=== PATIENT | female | born 1955 | race Caucasian/White ===

== ENCOUNTER → 2019-05-09 | Outpatient (CLI) | payer OTHER ==
[~2019-05-09] MED LIST: AMIT25 PO; AMLO5 PO; ASPI325 PO; ATEN25 PO; BIOTIN10000 MC1 PO; BP MED; BUPR75 PO; CALCAVITD PO; CELE200 PO; CEPH500 PO; CYCL10 PO; Cinnamon500 MG PO; Cipro500 MG PO; DIPATR PO; DULO60 PO; GABA600 PO; GLIP5 PO; HYDACE10B PO; HYDHCL25 PO; HYDROXYZINE HCL PO; INSDET100 SC; KETO10 PO; LEVSOD100 PO; LEVSOD125 PO; LEVSOD137 PO; LEVSOD150 PO; LISI5 PO; LOSA50 PO; LOSARTAN POTAS100 MG PO; Lexapro20 MG PO; METF500 PO; METF500C PO; Norco 10-325 T1 EACH PO; Norco 5-325 Ta1 EACH PO; OMEP20ER PO; ONDA4ODT MM; OXYACE5T PO; Omeprazole20 M1 PO; PANT40 PO; PRAV20 PO; PROM25 PO; PROM25S PR; Pyridium200 MG PO; Roxicodone5 MG PO; SITA25T2 PO; SITA50T2 PO; SUCR1 PO; TRAM50 PO; Zanaflex2 M1 PO; Zofran Odt4 MG SL
== END | disposition home or self-care (01) ==
LOC: LAB SHORT 14:23 → LAB EV 14:23
DX: N39.0 Urinary tract infection, site not specified (principal)
CPT/HCPCS: 87086

== ENCOUNTER 2019-08-24 08:06 | Day surgery (SDC) | payer OTHER ==
[~2019-08-24] VITALS: Ht 170.2 cm; Wt 85.7 kg
--- NOTE | 2019-08-24 08:43 | NUR ---
Ambulatory in Day Surgery. History, Chart, Medications and Allergies reviewed before start of procedure. Lungs clear T/O to Auscultation. Patient confirms NPO status and agrees with scheduled surgery. Pre-Op teaching done. Pt verbalizes understanding. Patient States Post-Procedure ride home has been arranged.
--- NOTE | 2019-08-24 08:52 | NUR ---
08/24/19 0852 Eli Bond History, Chart, Medications and Allergies reviewed before start of procedure. PATIENT CONFIRMS NPO STATUS AND AGREES WITH SCHEDULED PROCEDURE. MONITOR INTACT WITH CONTINUOUS PULSE OXIMETRY AND INTERMITTENT BP. O2 VIA N/C INTACT THROUGHOUT SEDATION/PROCEDURE. 3-LEAD EKG REVIEWED WITH PHYSICIAN PRIOR TO START OF PROCEDURE. Bite Block Placed. HURRICAINE SPRAY TO OROPHARYX. PATIENT DETERMINED TO BE ASA APPROPRIATE FOR PROPOFOL SEDATION PRIOR TO START OF PROCEDURE BY DR. TORRES
--- NOTE | 2019-08-24 09:43 | NUR ---
Discharge instructions reviewed with patient. Patient verbalizes understanding. Copy given to patient to take home. LAB HERE TO DRAW BLOOD PER ORDER.
[2019-08-24 09:55] LABS: BASOPHILS ABSOLUTE AUTO 0.04 K/mm3 (0.00-0.23); BASOPHILS PERCENT AUTO 1 % (0-2); EOSINOPHILS ABSOLUTE AUTO 0.16 K/mm3 (0.00-0.68); EOSINOPHILS PERCENT AUTO 3 % (0-6); Hematocrit 36.5 % (33.0-51.0); Hemoglobin 11.9 g/dL (11.5-16.0); IMMATURE GRAN ABSOLUTE AUTO 0.02 K/mm3 (0.00-0.10); IMMATURE GRAN PERCENT AUTO 0 % (0-1); LYMPHOCYTES ABSOLUTE AUTO 1.43 K/mm3 (0.84-5.20); LYMPHOCYTES PERCENT AUTO 25 % (21-46); MONOCYTES ABSOLUTE AUTO 0.65 K/mm3 (0.16-1.47); MONOCYTES PERCENT AUTO 11 % (4-13); Mean Corpuscular HGB 30.3 pg (26.0-34.0); Mean Corpuscular HGB Conc 32.6 g/dL (31.5-36.5); Mean Corpuscular Volume 93 fL (80-100); Mean Platelet Volume 9.3 fL (9.1-12.4); NEUTROPHILS ABSOLUTE AUTO 3.42 K/mm3 (1.96-9.15); NEUTROPHILS PERCENT AUTO 60 % (41-73); Platelet Count 194 K/mm3 (150-400); RDW Coefficient Variation 12.8 % (11.7-14.2); Red Blood Cell Count 3.93 M/mm3 (3.80-5.20); White Blood Cell Count 5.72 K/mm3 (4.00-11.30)
--- NOTE | 2019-08-24 10:17 | NUR ---
4025- Discharged via wheelchair to private car for ride home. FAXED ORDER FOR CT TO RADIOLOGY PER MOST, ALL OUTPT RADIOLOGY PROCEDURES NEED TO BE REVIEWED FIRST BEFORE SCHEDULED. EXPLAINED TO PT PRIOR TO DC HOME THAT CT IS NOT ABLE TO BE DONE TODAY BECAUSE SHE IS POST EGD PROCEDURE AND "TOO MUCH" AIR IN ABDOMEN MAY BE POSSIBLE. DR TORRES AWARE THAT CT WILL NEED TO BE OUTPT.
[2019-08-24 10:21] LABS: Alanine Aminotransfer (ALT/SGP 31 U/L (12-78); Albumin, Blood 3.3 g/dL (3.4-5.0); Albumin/Globulin Ratio 1.1 (0.8-1.8); Alk Phos 69 U/L (50-136); Anion Gap 6 mmol/L (6-16); Aspartate Aminotrans (AST/SGOT 22 U/L (12-37); Bilirubin, Total 0.3 mg/dL (0.1-1.0); Blood Urea Nitrogen 10 mg/dL (8-24); Bun/Creatinine Ratio 11.5 (12.0-20.0); CO2, Blood 28 mmol/L (21-32); Calcium, Blood 8.9 mg/dL (8.5-10.1); Chloride, Blood 108 mmol/L (98-108); Creatinine, Blood 0.87 mg/dL (0.40-1.00); Globulin, Blood 3.1 g/dL (2.2-4.0); Glomerular Filtration Rate >60 (60-); Glucose, Blood 151 mg/dL (70-99); Potassium, Blood 3.9 mmol/L (3.5-5.5); Sodium, Blood 142 mmol/L (136-145); Total Protein, Blood 6.4 g/dL (6.4-8.2)
== END 2019-08-24 09:52 | disposition home or self-care (01) ==
LOC: ORSCMMR 08:06 → ORD 09:15 → ORSCMMR 09:52
PROVIDERS: Internal Medicine Gastroenterology
PROC: 0DB98ZX Excision of Duodenum, Via Natural or Artificial Opening Endoscopic, Diagnostic (ICD-10-PCS; principal; 2019-08-24 09:15)
PROC: 0DB68ZX Excision of Stomach, Via Natural or Artificial Opening Endoscopic, Diagnostic (ICD-10-PCS; principal; 2019-08-24 09:15)
DX: R10.13 Epigastric pain (principal); K29.70 Gastritis, unspecified, without bleeding; E11.9 Type 2 diabetes mellitus without complications; I10 Essential (primary) hypertension; M79.7 Fibromyalgia; Z79.4 Long term (current) use of insulin; Z79.84 Long term (current) use of oral hypoglycemic drugs; Z79.899 Other long term (current) drug therapy
CPT/HCPCS: 36415; 80053; 82947; 85025; 88305; 88342; J2704; J7120

== ENCOUNTER 2020-05-04 12:51 | Emergency (ER) | payer OTHER ==
[~2020-05-04] VITALS: Ht 170.2 cm; Wt 83.9 kg
[2020-05-04] MEDS ORDERED: SITA50T2 PO (13:03)
[2020-05-04] MEDS ORDERED: MAGNESIUM OXID500 MG PO (13:05)
[2020-05-04] MEDS ORDERED: LORA10ER PO (13:05)
[2020-05-04] MEDS ORDERED: OMEP20ER PO (13:06)
[2020-05-04] MEDS ORDERED: PARO20 PO (13:06)
[2020-05-04] MEDS ORDERED: ATOR20 PO (13:08)
[2020-05-04] MEDS ORDERED: TRAZ100 PO (13:09)
[2020-05-04] MEDS ORDERED: ROXICODONE15 MG PO (13:11)
[2020-05-04] MEDS ORDERED: BASAGLAR K100 UNIT/7 SC (13:12)
[2020-05-04 13:28] LABS: BASOPHILS ABSOLUTE AUTO 0.05 K/mm3 (0.00-0.23); BASOPHILS PERCENT AUTO 1 % (0-2); EOSINOPHILS ABSOLUTE AUTO 0.26 K/mm3 (0.00-0.68); EOSINOPHILS PERCENT AUTO 4 % (0-6); Hematocrit 41.8 % (33.0-51.0); Hemoglobin 13.7 g/dL (11.5-16.0); IMMATURE GRAN ABSOLUTE AUTO 0.01 K/mm3 (0.00-0.10); IMMATURE GRAN PERCENT AUTO 0 % (0-1); LYMPHOCYTES PERCENT AUTO 30 % (21-46); MONOCYTES ABSOLUTE AUTO 0.57 K/mm3 (0.16-1.47); MONOCYTES PERCENT AUTO 9 % (4-13); Mean Corpuscular HGB 30.4 pg (26.0-34.0); Mean Corpuscular HGB Conc 32.8 g/dL (31.5-36.5); Mean Corpuscular Volume 93 fL (80-100); Mean Platelet Volume 9.5 fL (9.1-12.4); NEUTROPHILS ABSOLUTE AUTO 3.84 K/mm3 (1.96-9.15); NEUTROPHILS PERCENT AUTO 57 % (41-73); Platelet Count 231 K/mm3 (150-400); RDW Coefficient Variation 14.8 % (11.7-14.2); RDW Standard Deviation 51.1 fL (35.1-46.3); Red Blood Cell Count 4.51 M/mm3 (3.80-5.20); White Blood Cell Count 6.73 K/mm3 (4.00-11.30)
[2020-05-04 13:49] LABS: Alanine Aminotransfer (ALT/SGP 45 U/L (12-78); Albumin, Blood 4.1 g/dL (3.4-5.0); Albumin/Globulin Ratio 1.1 (0.8-1.8); Alk Phos 58 U/L (50-136); Anion Gap 6 mmol/L (6-16); Aspartate Aminotrans (AST/SGOT 46 U/L (12-37); Bilirubin, Total 0.5 mg/dL (0.1-1.0); Blood Urea Nitrogen 14 mg/dL (8-24); Bun/Creatinine Ratio 12.7 (12.0-20.0); CO2, Blood 28 mmol/L (21-32); Calcium, Blood 9.6 mg/dL (8.5-10.1); Chloride, Blood 105 mmol/L (98-108); Globulin, Blood 3.7 g/dL (2.2-4.0); Glomerular Filtration Rate 53 (60-); Glucose, Blood 93 mg/dL (70-99); Sodium, Blood 139 mmol/L (136-145); Total Protein, Blood 7.8 g/dL (6.4-8.2); Troponin I <0.015 ng/mL (0.000-0.040)
[2020-05-04 14:05] LABS: Source, Urine Clean Catch
[2020-05-04 14:10] LABS: Appearance, Urine Clear (Clear); Bilirubin, Urine Neg (Neg); Blood, Urine Neg (Neg); Color, Urine Yellow (P-Yellow); Glucose Qualitative, Urine Neg (Neg); Ketones, Urine Neg (Neg); Leukocyte Esterase, Urine 1+ (Neg); Nitrite, Urine Neg (Neg); Protein, Urine Neg (Neg); Urobilinogen, Urine NORM (Normal)
[2020-05-04 14:18] LABS: Bacteria Few /hpf; Red Blood Cells, Urine 0-2 /hpf (0-2); Squamous Epithelial Cells Few /hpf (Few)
== END 2020-05-04 15:26 | disposition home or self-care (01) ==
LOC: ER 12:51
PROVIDERS: Emergency Medicine; Physician Assistant
DX: R55 Syncope and collapse (principal); E11.9 Type 2 diabetes mellitus without complications; I10 Essential (primary) hypertension; E78.5 Hyperlipidemia, unspecified; K21.9 Gastro-esophageal reflux disease without esophagitis; Z79.899 Other long term (current) drug therapy; Z79.4 Long term (current) use of insulin; Z88.5 Allergy status to narcotic agent; Z87.891 Personal history of nicotine dependence
CPT/HCPCS: 36415; 80053; 81001; 83880; 84484; 85025; 87086; 93005; 93010; 99285-25

== ENCOUNTER 2021-01-06 13:00 | Emergency (ER) | payer OTHER ==
[~2021-01-06] VITALS: Ht 170.2 cm; Wt 86.2 kg
[~2021-01-06 13:00] MED LIST changes: +ATOR20 PO; +BASAGLAR K100 UNIT/7 SC; +LORA10ER PO; +MAGNESIUM OXID500 MG PO; +PARO20 PO; +ROXICODONE15 MG PO; +TRAZ100 PO
[2021-01-06 14:02] LABS: Alanine Aminotransfer (ALT/SGP 30 U/L (12-78); Albumin, Blood 3.7 g/dL (3.4-5.0); Albumin/Globulin Ratio 0.8 (0.8-1.8); Alk Phos 84 U/L (50-136); Anion Gap 4 mmol/L (6-16); Aspartate Aminotrans (AST/SGOT 21 U/L (12-37); Bilirubin, Total 0.3 mg/dL (0.1-1.0); Blood Urea Nitrogen 16 mg/dL (8-24); Bun/Creatinine Ratio 19.7 (12.0-20.0); CO2, Blood 25 mmol/L (21-32); Chloride, Blood 107 mmol/L (98-108); Creatinine, Blood 0.81 mg/dL (0.40-1.00); Globulin, Blood 4.5 g/dL (2.2-4.0); Glomerular Filtration Rate >60 (60-); Glucose, Blood 120 mg/dL (70-99); Potassium, Blood 4.1 mmol/L (3.5-5.5); Sodium, Blood 136 mmol/L (136-145); Total Protein, Blood 8.2 g/dL (6.4-8.2)
[2021-01-06 15:29] LABS: BASOPHILS ABSOLUTE AUTO 0.04 K/mm3 (0.00-0.23); BASOPHILS PERCENT AUTO 0 % (0-2); EOSINOPHILS ABSOLUTE AUTO 0.06 K/mm3 (0.00-0.68); EOSINOPHILS PERCENT AUTO 1 % (0-6); Hematocrit 45.2 % (33.0-51.0); Hemoglobin 14.5 g/dL (11.5-16.0); IMMATURE GRAN ABSOLUTE AUTO 0.03 K/mm3 (0.00-0.10); IMMATURE GRAN PERCENT AUTO 0 % (0-1); LYMPHOCYTES ABSOLUTE AUTO 2.31 K/mm3 (0.84-5.20); LYMPHOCYTES PERCENT AUTO 23 % (21-46); MONOCYTES PERCENT AUTO 8 % (4-13); Mean Corpuscular HGB 28.3 pg (26.0-34.0); Mean Corpuscular HGB Conc 32.1 g/dL (31.5-36.5); Mean Corpuscular Volume 88 fL (80-100); Mean Platelet Volume 10.2 fL (9.1-12.4); NEUTROPHILS PERCENT AUTO 68 % (41-73); Platelet Count 286 K/mm3 (150-400); RDW Coefficient Variation 13.2 % (11.7-14.2); RDW Standard Deviation 42.7 fL (35.1-46.3); Red Blood Cell Count 5.13 M/mm3 (3.80-5.20); White Blood Cell Count 9.94 K/mm3 (4.00-11.30)
== END 2021-01-06 16:48 | disposition home or self-care (01) ==
LOC: ER 13:00
PROVIDERS: Physician Assistant
DX: R10.84 Generalized abdominal pain (principal); Z79.84 Long term (current) use of oral hypoglycemic drugs; Z79.899 Other long term (current) drug therapy; E11.9 Type 2 diabetes mellitus without complications; I10 Essential (primary) hypertension; E78.5 Hyperlipidemia, unspecified; K21.9 Gastro-esophageal reflux disease without esophagitis; M79.10 Myalgia, unspecified site; F17.210 Nicotine dependence, cigarettes, uncomplicated
CPT/HCPCS: 36415; 71045; 74176; 80053; 83690; 85025; 99284-25; A9270

== ENCOUNTER 2022-02-18 14:38 | Observation (INO) | payer OTHER ==
[~2022-02-18] VITALS: Ht 170.2 cm; Wt 90.7 kg
[~2022-02-18 14:38] MED LIST changes: -AMLODIPINE BESYL5 MG PO; -Amaryl1 MG PO; -BASAGLAR K100 UNIT/3 SC; -ESTRADIOL (TWI1 EAC4 TD; -FARXIGA5 MG PO; -OZEMPIC1 MG/0.72 SC
[2022-02-18 15:27] LABS: BASOPHILS ABSOLUTE AUTO 0.05 K/mm3 (0.00-0.23); BASOPHILS PERCENT AUTO 1 % (0-2); EOSINOPHILS ABSOLUTE AUTO 0.22 K/mm3 (0.00-0.68); EOSINOPHILS PERCENT AUTO 3 % (0-6); Hematocrit 40.4 % (33.0-51.0); Hemoglobin 13.3 g/dL (11.5-16.0); IMMATURE GRAN ABSOLUTE AUTO 0.02 K/mm3 (0.00-0.10); IMMATURE GRAN PERCENT AUTO 0 % (0-1); LYMPHOCYTES ABSOLUTE AUTO 2.54 K/mm3 (0.84-5.20); LYMPHOCYTES PERCENT AUTO 32 % (21-46); MONOCYTES ABSOLUTE AUTO 0.67 K/mm3 (0.16-1.47); MONOCYTES PERCENT AUTO 8 % (4-13); Mean Corpuscular HGB 28.7 pg (26.0-34.0); Mean Corpuscular HGB Conc 32.9 g/dL (31.5-36.5); Mean Corpuscular Volume 87 fL (80-100); Mean Platelet Volume 9.6 fL (9.1-12.4); NEUTROPHILS ABSOLUTE AUTO 4.51 K/mm3 (1.96-9.15); NEUTROPHILS PERCENT AUTO 56 % (41-73); Platelet Count 247 K/mm3 (150-400); RDW Coefficient Variation 14.1 % (11.7-14.2); RDW Standard Deviation 45.1 fL (35.1-46.3); Red Blood Cell Count 4.64 M/mm3 (3.80-5.20); White Blood Cell Count 8.01 K/mm3 (4.00-11.30)
[2022-02-18 15:52] LABS: Albumin, Blood 3.9 g/dL (3.4-5.0); Albumin/Globulin Ratio 1.1 (0.8-1.8); Bilirubin, Total 0.3 mg/dL (0.1-1.0); Bun/Creatinine Ratio 29.5 (12.0-20.0); Calcium, Blood 9.2 mg/dL (8.5-10.1); Creatinine, Blood 0.68 mg/dL (0.40-1.00); Globulin, Blood 3.5 g/dL (2.2-4.0); Potassium, Blood 3.6 mmol/L (3.5-5.5); Total Protein, Blood 7.4 g/dL (6.4-8.2)
[2022-02-18 16:10] LABS: Influenza A, PCR NEGATIVE (NEGATIVE); Influenza B, PCR NEGATIVE (NEGATIVE); Resp Syncytial Virus, PCR NEGATIVE (NEGATIVE); SARS-Cov-2 (COVID-19) PCR, MMC NEGATIVE (NEGATIVE)
[2022-02-18] MEDS ORDERED: SITA50T2 PO (23:07)
[2022-02-18] MEDS ORDERED: AMLODIPINE BESYL5 MG PO (23:07)
[2022-02-18] MEDS ORDERED: OMEP20ER PO (23:08)
[2022-02-18] MEDS ORDERED: BASAGLAR K100 UNIT/3 SC (23:09)
[2022-02-18] MEDS ORDERED: ESTRADIOL (TWI1 EAC4 TD (23:10)
[2022-02-18] MEDS ORDERED: LOSARTAN POTAS100 MG PO (23:11)
[2022-02-18] MEDS ORDERED: OZEMPIC1 MG/0.72 SC (23:12)
[2022-02-18] MEDS ORDERED: FARXIGA5 MG PO (23:13)
[2022-02-18] MEDS ORDERED: Amaryl1 MG PO (23:14)
--- NOTE | 2022-02-19 00:26 | NUR ---
PT ARRIVED TO MED FLOOR ABOUT 2204. PT AOX4, O2 RA, DENIES NV, C/O NAVARRETE AND CHEST PAIN DESCRIBED PRESSURE AND PAIN IN CHEST OVER HEART DESCRIBED CONSISTENT PINCHING OR STABBING. PT. REPORTS THAT NITRO PROVIDED NO RELIEF. PT REPORTS MORPHINE PROVIDED SMALL RELIEF. PRN MORPINE AND PRN TYLENOL ARE ORDERED. PT. BLOOD GLUCOSE MEASURED AT 153. PT. NPO FOR PROCEDURE EARLY AM. PT STATES BM TODAY. NO DIFICULTIES VOIDING AT HOME. NO FREQUENTY. NO ABDOMINAL TENDERNESS, NO SWELLING IN BLE. BL LUNG SOUNDS CLEAR. DENIES COUGH. PT. ABLE TO AMBULATE SBA. REMOTE TELEMETRY ORDERED AND PLACED. ORIENTED PT TO ROOM AND USE OF CALL LIGHT, BED IN LOW POSITION AND LOCKED.
[2022-02-19 07:59] LABS: BASOPHILS ABSOLUTE AUTO 0.03 K/mm3 (0.00-0.23); BASOPHILS PERCENT AUTO 1 % (0-2); EOSINOPHILS ABSOLUTE AUTO 0.19 K/mm3 (0.00-0.68); EOSINOPHILS PERCENT AUTO 3 % (0-6); Hematocrit 39.1 % (33.0-51.0); Hemoglobin 12.8 g/dL (11.5-16.0); IMMATURE GRAN ABSOLUTE AUTO 0.01 K/mm3 (0.00-0.10); IMMATURE GRAN PERCENT AUTO 0 % (0-1); LYMPHOCYTES ABSOLUTE AUTO 1.87 K/mm3 (0.84-5.20); LYMPHOCYTES PERCENT AUTO 32 % (21-46); MONOCYTES ABSOLUTE AUTO 0.58 K/mm3 (0.16-1.47); MONOCYTES PERCENT AUTO 10 % (4-13); Mean Corpuscular HGB 28.4 pg (26.0-34.0); Mean Corpuscular HGB Conc 32.7 g/dL (31.5-36.5); Mean Corpuscular Volume 87 fL (80-100); Mean Platelet Volume 9.7 fL (9.1-12.4); NEUTROPHILS ABSOLUTE AUTO 3.14 K/mm3 (1.96-9.15); NEUTROPHILS PERCENT AUTO 54 % (41-73); Platelet Count 207 K/mm3 (150-400); RDW Standard Deviation 44.8 fL (35.1-46.3); White Blood Cell Count 5.82 K/mm3 (4.00-11.30)
[2022-02-19 08:28] LABS: Albumin, Blood 3.7 g/dL (3.4-5.0); Albumin/Globulin Ratio 1.1 (0.8-1.8); Bilirubin, Total 0.4 mg/dL (0.1-1.0); Bun/Creatinine Ratio 23.6 (12.0-20.0); Calcium, Blood 9.2 mg/dL (8.5-10.1); Creatinine, Blood 0.59 mg/dL (0.40-1.00); Globulin, Blood 3.3 g/dL (2.2-4.0); Potassium, Blood 3.6 mmol/L (3.5-5.5)
--- NOTE | 2022-02-19 16:13 | NUR ---
PT AOX4 AND INDEPENDENT IN ROOM. PT HAS HAD CONTINUED CHEST PRESSURE AND HAS BEEN TREATED PER EMAR. THIS SEEMS TO BE EFFECTIVE AT THIS TIME. PT COMPLETED FIRST PART OF STRESS TEST AND WILL FINISH SECOND HALF TOMORROW. PT RESTING IN BED AT THIS TIME WITH CALL LIGHT WITHIN REACH WILL CONTINUE TO MONITOR.
--- NOTE | 2022-02-20 01:49 | NUR ---
PATIENT NPO AT MIDNIGHT FOR PROCEDURE IN AM. NO CAFFINE SINCE 02/19/22 @1356.
--- NOTE | 2022-02-20 07:39 | NUR ---
NOC SHIFT SUMMARY PT RESTED WELL THROUGH NIGHT. AOX4 O2RA NO C/O NAUSEA PT ENDORSES HEADACHE PAIN TREATED WITH PRN MEDICATION SEE JUN. PT. DECLINED PAIN MEDICATION FOR CHEST PAIN. PT. STATES PRESSURE IS STILL PRESENT IN CHEST AND LESS SHARP PAINS OVER HEART. PT. HAD NO CAFFINE AFTER 1900 AND WAS NPO AFTER MIDNIGHT FOR 2ND STRESS TEST THIS AM. VS AND BLOOD GLUCOSE WDL
--- NOTE | 2022-02-20 10:57 | NUR ---
Student consent statement. Patient verbally consented to allow this 2nd year [facility] nursing home aide to participate in her care on 02/20/22. CT
--- NOTE | 2022-02-20 15:17 | NUR ---
DISCHARGE SUMARY PT A/O X4; PLEASANT AND COOPERATIVE WITH CARE. SECOND PART OF STRESS TEST DONE TODAY AND RESULTS WERE UNREMARKABLE. PT CONTINUES TO HAVE CP BUT IT IS TOLERABLE AT THIS TIME. PT TO FOLLOW UP WITH PRIMARY CARE AND IS HAVING OUTPATIENTS LABS DONE TODAY. VSS. PT DISCHARGED HOME.
== END 2022-02-20 15:08 | disposition home or self-care (01) ==
LOC: ER 14:38 → MEDS 14:39
PROVIDERS: Physician Assistant; ADMIT Internal Medicine
DX: R07.89 Other chest pain (principal); E11.9 Type 2 diabetes mellitus without complications; E78.5 Hyperlipidemia, unspecified; K21.9 Gastro-esophageal reflux disease without esophagitis; K27.9 Peptic ulcer, site unspecified, unspecified as acute or chronic, without hemorrhage or perforation; R91.8 Other nonspecific abnormal finding of lung field; Z79.84 Long term (current) use of oral hypoglycemic drugs; Z79.4 Long term (current) use of insulin; F17.210 Nicotine dependence, cigarettes, uncomplicated; Z20.822 Contact with and (suspected) exposure to COVID-19; M79.7 Fibromyalgia
CPT/HCPCS: 0241U; 36415; 71045; 71260; 78452; 80053; 82947; 83880; 84484; 85025; 93005; 93010; 93017; 96372; 96375; 96376; A9270; A9500; G0378; J0280; J1650; J1815; J2270; J2405; J2785; Q9967

== ENCOUNTER → 2022-02-18 | Outpatient (CLI) | payer OTHER ==
[~2022-02-18] MED LIST changes: +AMLODIPINE BESYL5 MG PO; -ATOR20 PO; +ATOR40TA PO; +Amaryl1 MG PO; +BASAGLAR K100 UNIT/3 SC; +ESTRADIOL (TWI1 EAC4 TD; +FARXIGA5 MG PO; +LEVOTHYROXINE PO; -LEVSOD137 PO; +OZEMPIC1 MG/0.72 SC
[2022-02-18 17:17] LABS: Source, Urine Voided
[2022-02-18 18:03] LABS: Appearance, Urine Hazy (Clear); Bilirubin, Urine Neg (Neg); Blood, Urine 1+ (Neg); Color, Urine Yellow (P-Yellow); Glucose Qualitative, Urine 4+ (Neg); Ketones, Urine 1+ (Neg); Leukocyte Esterase, Urine Neg (Neg); Nitrite, Urine Neg (Neg); Protein, Urine Neg (Neg); Specific Gravity, Urine 1.025 (1.003-1.022); Urobilinogen, Urine NORM (Normal)
[2022-02-18 18:16] LABS: Bacteria Mod /hpf; Red Blood Cells, Urine 0-2 /hpf (0-2); Renal Epithelial Few /hpf (0-Rare); Squamous Epithelial Cells Many /hpf (Few); White Blood Cells, Urine 0-2 /hpf (0-5)
[2022-02-19 10:10] LABS: Candida species (DNA Probe) Negative (NEGATIVE); G. vaginalis (DNA Probe) Negative (NEGATIVE); T. vaginalis (DNA Probe) Negative (NEGATIVE)
== END | disposition home or self-care (01) ==
LOC: LAB 14:20 → LAB SHORT 14:20
PROVIDERS: Registered Nurse
DX: N89.8 Other specified noninflammatory disorders of vagina (principal); R35.0 Frequency of micturition
CPT/HCPCS: 81001; 87077; 87086; 87186; 87480; 87510; 87660

== ENCOUNTER → 2023-02-18 | Outpatient (CLI) | payer OTHER ==
[~2023-02-18] MED LIST changes: +AMLODIPINE BESYL5 MG PO; +Amaryl1 MG PO; +BASAGLAR K100 UNIT/3 SC; +ESTRADIOL (TWI1 EAC4 TD; +FARXIGA5 MG PO; +OZEMPIC1 MG/0.72 SC
[2023-02-18 12:36] LABS: Albumin, Blood 4.5 g/dL (3.4-5.0); Albumin/Globulin Ratio 1.1 (0.8-1.8); Bilirubin, Total 0.5 mg/dL (0.1-1.0); Bun/Creatinine Ratio 17.5 (12.0-20.0); Calcium, Blood 10.1 mg/dL (8.5-10.1); Creatinine, Blood 1.03 mg/dL (0.40-1.00); Globulin, Blood 4.1 g/dL (2.2-4.0); Potassium, Blood 3.8 mmol/L (3.5-5.5); Total Protein, Blood 8.6 g/dL (6.4-8.2)
[2023-02-18 13:00] LABS: BASOPHILS ABSOLUTE AUTO 0.05 K/mm3 (0.00-0.23); BASOPHILS PERCENT AUTO 1 % (0-2); EOSINOPHILS PERCENT AUTO 3 % (0-6); Hematocrit 43.5 % (33.0-51.0); IMMATURE GRAN ABSOLUTE AUTO 0.02 K/mm3 (0.00-0.10); IMMATURE GRAN PERCENT AUTO 0 % (0-1); LYMPHOCYTES ABSOLUTE AUTO 1.99 K/mm3 (0.84-5.20); LYMPHOCYTES PERCENT AUTO 30 % (21-46); MONOCYTES ABSOLUTE AUTO 0.58 K/mm3 (0.16-1.47); MONOCYTES PERCENT AUTO 9 % (4-13); Mean Corpuscular HGB 31.6 pg (26.0-34.0); Mean Corpuscular HGB Conc 34.5 g/dL (31.5-36.5); Mean Corpuscular Volume 92 fL (80-100); Mean Platelet Volume 10.1 fL (9.1-12.4); NEUTROPHILS ABSOLUTE AUTO 3.87 K/mm3 (1.96-9.15); NEUTROPHILS PERCENT AUTO 58 % (41-73); Platelet Count 244 K/mm3 (150-400); RDW Coefficient Variation 14.1 % (11.7-14.2); RDW Standard Deviation 47.4 fL (35.1-46.3); Red Blood Cell Count 4.75 M/mm3 (3.80-5.20); White Blood Cell Count 6.71 K/mm3 (4.00-11.30)
== END | disposition home or self-care (01) ==
LOC: LAB SHORT 12:17 → LAB 12:17
PROVIDERS: Chiropractor
DX: R10.32 Left lower quadrant pain (principal)
CPT/HCPCS: 80053; 85025

== ENCOUNTER 2023-11-09 06:15 | Day surgery (SDC) | payer OTHER ==
[~2023-11-09] VITALS: Ht 170.2 cm; Wt 89.8 kg
[~2023-11-09 06:15] MED LIST changes: +Lactated Ringer's 1,000 ML IV ONE
[2023-11-09] MEDS ORDERED: OZEMPIC2 MG/0.75 (07:07)
[2023-11-09] MEDS ORDERED: SEMGLEE (Y100 UNIT/2 SQ (07:08)
[2023-11-09] MEDS ORDERED: EUTHYROX175 MC1 PO (07:08)
[2023-11-09] MEDS ORDERED: METFORMIN HCL500 M3 PO (07:09)
[2023-11-09] MEDS ORDERED: Bupivacaine 0.5% Inj 50 ML Vial (NON CHARGE) ONE (07:11)
[2023-11-09] MEDS ORDERED: Bupivacaine 0.5% Inj 50 ML Vial ONE (07:16)
[2023-11-09] MEDS ORDERED: Lactated Ringer's 1,000 ML IV ONE (07:21)
[2023-11-09] MEDS ORDERED: Midazolam HCl 1MG / ML 2ML Vial ONE (07:22)
--- NOTE | 2023-11-09 07:24 | NUR ---
11/09/[address] NOTIFIED OF PATIENT REPORTING YEAST TO ARMPIT OF L ARM, AREA IS NOT RED OR WEEPING, BUT IS DISCOLORED. PER DR SIMMONS OK TO PROCEED.
[2023-11-09] MEDS ORDERED: CefTRIAXone Sodium 2,000 MG in NS 100 ML IV SCH (07:30)
[2023-11-09] MEDS ORDERED: propofoL 20 ML IV ONE (07:44)
[2023-11-09] MEDS ORDERED: Vasopressin 20 UNITS/ML 1ML Vial ONE (08:19)
[2023-11-09] MEDS ORDERED: EPINEPhrine HCl 1 MG/ML 1ML Amp XX ONE (08:20)
--- NOTE | 2023-11-09 08:23 | NUR ---
11/09/23 0823 Deandre Alatorre 1 MG EPI ADDED TO THE FIRST BAG OF LR [facility]
[2023-11-09] MEDS ORDERED: NS 1,000 ML IV ONE (08:27)
[2023-11-09] MEDS ORDERED: Phenylephrine HCl 100 MCG/ML-NS 10MLSYR (1MG/10ML) ONE (09:09)
[2023-11-09] MEDS ORDERED: Dexamethasone Sod Phos 10 MG/ML 1ML VIAL ONE (09:09)
[2023-11-09] MEDS ORDERED: Ondansetron HCl 2 MG / ML 2ML Vial ONE (09:09)
[2023-11-09] MEDS ORDERED: EPINEPhrine HCl 1 MG/ML 1ML Amp ONE (09:09)
[2023-11-09 09:49] VITALS: BP 125/72
--- NOTE | 2023-11-09 09:51 | NUR ---
11/09/23 0951 Wen Carter PT O2 SAT DROPPED TO 89% ON RA. PT WAS PLACED ON 10L VIA FACE TENT. PT'S SPO2 AT 96%. THIS RN TOLD PT TO TAKE NICE DEEP BREATHES. PT APPEARS TO BE PRETTY SLEEPY. MARY.
--- NOTE | 2023-11-09 10:44 | NUR ---
11/09/23 Shivani4 Wen Carter PT IN RECLINER, PT'S SISTER NEXT TO HER. PT ON RA, SPO2 AT 93% TRIAL. PT ENCOURAGED TO TAKE DEEP BREATHES. DANIA SPANGLER EDUCATED PT ON WHY IT FELT DIFFICULT TO TAKE DEEP BREATHES. EDUCATION ON INSENTIVE SPIROMETER WAS PROVIDED. PT HAS BEEN SITTING UP FOR 40MINTUES, MAINTAINING SPO2 AT 91-94%. GOAL IS TO OBTAIN 94% ON RA. EDUCATION ON POLAR PACK AND ON HOW TO WEAR SLING. WCTM.
== END 2023-11-09 11:09 | disposition home or self-care (01) ==
LOC: ORSCSDS 06:15
PROVIDERS: Orthopaedic Surgery
PROC: 0LM24ZZ Reattachment of Left Shoulder Tendon, Percutaneous Endoscopic Approach (ICD-10-PCS; principal; 2023-11-09 07:30)
PROC: 0RNK4ZZ Release Left Shoulder Joint, Percutaneous Endoscopic Approach (ICD-10-PCS; principal; 2023-11-09 07:30)
DX: M75.122 Complete rotator cuff tear or rupture of left shoulder, not specified as traumatic (principal); M75.42 Impingement syndrome of left shoulder; I10 Essential (primary) hypertension; E03.9 Hypothyroidism, unspecified; E13.9 Other specified diabetes mellitus without complications; Z79.4 Long term (current) use of insulin; Z79.84 Long term (current) use of oral hypoglycemic drugs; Z79.899 Other long term (current) drug therapy
CPT/HCPCS: 82947; C1713; J0171; J0696; J1100; J2250; J2371; J2405; J2704; J7030; J7120

== ENCOUNTER → 2024-10-18 | Outpatient (CLI) | payer OTHER ==
[~2024-10-18] MED LIST changes: +EUTHYROX175 MC1 PO; -Lactated Ringer's 1,000 ML IV ONE; +METFORMIN HCL500 M3 PO; +OZEMPIC2 MG/0.75; +SEMGLEE (Y100 UNIT/2 SQ
[2024-10-18 15:47] LABS: Anion Gap 5.0 mmol/L (3-11); Blood Urea Nitrogen 14.0 mg/dL (8-24); CO2, Blood 30.0 mmol/L (21-32); Calcium, Blood 9.0 mg/dL (8.5-10.1); Chloride, Blood 107.0 mmol/L (98-108); Creatinine, Blood 0.79 mg/dL (0.40-1.00); Glucose, Blood 124.0 mg/dL (70-99); Potassium, Blood 3.8 mmol/L (3.5-5.5); Sodium, Blood 138.0 mmol/L (136-145); Thyroid Stimulating Hormone 0.214 uIU/mL (0.360-4.800)
== END ==
LOC: LAB 14:00 → LAB SHORT 14:00
PROVIDERS: Internal Medicine
DX: E11.69 Type 2 diabetes mellitus with other specified complication (principal); E03.9 Hypothyroidism, unspecified; N30.00 Acute cystitis without hematuria
CPT/HCPCS: 80048; 84439; 84443; 87077; 87086; 87186

== ENCOUNTER → 2025-02-28 | Outpatient (CLI) | payer OTHER ==
[2025-02-28 15:33] LABS: BASOPHILS ABSOLUTE AUTO 0.06 K/mm3 (0.00-0.23); BASOPHILS PERCENT AUTO 1 % (0-2); EOSINOPHILS ABSOLUTE AUTO 0.17 K/mm3 (0.00-0.68); EOSINOPHILS PERCENT AUTO 3 % (0-6); Hematocrit 45.8 % (33.0-51.0); Hemoglobin 15.4 g/dL (11.5-16.0); IMMATURE GRAN ABSOLUTE AUTO 0.01 K/mm3 (0.00-0.10); IMMATURE GRAN PERCENT AUTO 0 % (0-1); LYMPHOCYTES ABSOLUTE AUTO 1.72 K/mm3 (0.84-5.20); LYMPHOCYTES PERCENT AUTO 34 % (21-46); MONOCYTES ABSOLUTE AUTO 0.46 K/mm3 (0.16-1.47); MONOCYTES PERCENT AUTO 9 % (4-13); Mean Corpuscular HGB Conc 33.6 g/dL (31.5-36.5); Mean Corpuscular Volume 93 fL (80-100); NEUTROPHILS ABSOLUTE AUTO 2.61 K/mm3 (1.96-9.15); NEUTROPHILS PERCENT AUTO 52 % (41-73); NRBC ABSOLUTE 0.00 K/mm3 (0.00-0.02); NRBC Auto 0.0 /100 WBC (0.0-0.2); Platelet Count 227 K/mm3 (150-400); RDW Coefficient Variation 13.2 % (11.7-14.2); RDW Standard Deviation 44.9 fL (35.1-46.3)
[2025-02-28 19:29] LABS: C-REACTIVE PROTEIN, EXT RANGE <0.290 mg/dL (0.000-0.300)
[2025-02-28 19:53] LABS: Alanine Aminotransfer (ALT/SGP 27 U/L (12-78); Albumin, Blood 4.1 g/dL (3.4-5.0); Albumin/Globulin Ratio 1.4 (0.8-1.8); Anion Gap 9 mmol/L (3-11); Aspartate Aminotrans (AST/SGOT 19 U/L (12-37); Bilirubin, Total 0.6 mg/dL (0.1-1.0); Blood Urea Nitrogen 16 mg/dL (8-24); CHOL/HDL RATIO 2.3; CO2, Blood 27 mmol/L (21-32); Calcium, Blood 9.7 mg/dL (8.5-10.1); Chloride, Blood 107 mmol/L (98-108); Cholesterol 138 mg/dL (50-200); Creatinine, Blood 0.80 mg/dL (0.40-1.00); Globulin, Blood 3.0 g/dL (2.2-4.0); Glucose, Blood 135 mg/dL (70-99); HDL Cholesterol 59 mg/dL (>39); LDL/HDL RATIO 0.9; Low Density Lipoprotein Chol 51 mg/dL (0-110); Potassium, Blood 4.0 mmol/L (3.5-5.5); Sodium, Blood 139 mmol/L (136-145); Thyroid Stimulating Hormone 1.160 uIU/mL (0.360-4.800); Total Protein, Blood 7.1 g/dL (6.4-8.2); Triglycerides 141 mg/dL (30-160); Very Low Density Lipoprot Chol 28 mg/dL (6-32)
== END ==
LOC: LAB 14:10 → LAB SHORT 14:10
PROVIDERS: Internal Medicine
DX: E78.2 Mixed hyperlipidemia (principal); E03.9 Hypothyroidism, unspecified; E53.8 Deficiency of other specified B group vitamins; G62.9 Polyneuropathy, unspecified
CPT/HCPCS: 80053; 80061; 82607; 84439; 84443; 85025; 86140